=== PATIENT | male | born 1990 | race African-American/Black ===

== ENCOUNTER 2023-01-14 17:10 | Emergency (ER) | payer OTHER ==
[~2023-01-14] VITALS: Ht 190.5 cm; Wt 68.0 kg
[2023-01-14 17:21] VITALS: TEMP 98.5; O2SAT 98
[2023-01-14 18:00] VITALS: BP 136/91; PULSE 88; RESP 17
[2023-01-14] MEDS ORDERED: IBUPROFEN 400MG TABLET PO ONE (18:00)
[2023-01-14] MEDS ORDERED: IBUP-2028 MT (18:48)
== END 2023-01-14 19:44 | disposition home or self-care (01) ==
LOC: ER 17:10
DX: S62.300A Unspecified fracture of second metacarpal bone, right hand, initial encounter for closed fracture (principal); W23.0XXA Caught, crushed, jammed, or pinched between moving objects, initial encounter; Y93.89 Activity, other specified; Y92.89 Other specified places as the place of occurrence of the external cause; Y99.8 Other external cause status
CPT/HCPCS: 29125; 73110; 73130; 99284